=== PATIENT | female | born 1995 | race Two or more races ===

== ENCOUNTER 2017-05-21 00:25 | Emergency (ER) | payer OTHER ==
[2017-05-21 00:28] VITALS: TEMP 98.6
--- NOTE | 2017-05-21 00:28 | EDPHY ---
H & P HPI/ROS: HPI CHIEF COMPLAINT: Back pain HISTORY OF PRESENT ILLNESS: This patient is a 22-year-old female otherwise healthy no significant medical history does not take any daily medications she presents emergency room with back pain. Patient reports to me that she was lifting a couch to clean this evening around 6:00 p.m.. She was lifting a couch with 1 arm and then pushing the Vacuum under the couch with the other arm. She immediately felt pain in her back lumbar region. Paravertebral. Her main complaint is paravertebral pain bilaterally in her lumbar spine. She denies radiation of pain. Denies pain that radiates down her legs. Denies saddle anesthesia. Denies bowel or bladder incontinence or retention. Denies direct trauma to her back. Pain is 7/10 worse with movement and standing. Past Medical History: No significant medical history Past Surgical History: No significant surgical history Social History: Denies daily use drugs alcohol tobacco products. Family History: Noncontributory ROS REVIEW OF SYSTEMS: A comprehensive 10 point review of systems is otherwise negative aside from elements mentioned in the history of present illness. Exam Constitutional appears well nontoxic triage nursing summary reviewed, vital signs reviewed, awake/alert. Eyes normal conjunctivae and sclera, EOMI, PERRLA. HENT normal inspection, atraumatic, moist mucus membranes, no epistaxis, neck supple/ no meningismus, no raccoon eyes. Respiratory clear to auscultation bilaterally, normal breath sounds, no respiratory distress, no wheezing. Cardiovascular rate normal, regular rhythm, no murmur, no edema, distal pulses normal. Gastrointestinal soft, non-tender, no rebound, no guarding, normal bowel sounds, no distension, no pulsatile mass. Genitourinary no CVA tenderness. Musculoskeletal I do not appreciate a focal tenderness in the midline lumbar spine, mild tenderness palpation paravertebral down the lumbar spine, full range of motion, no calf swelling, no tenderness of extremities, no meningismus , good pulses, neurovascularly intact. Skin pink, warm, & dry, no rash, skin atraumatic. Neurologic awake, alert and oriented x 3, AAOx3, moves all 4 extremities equally, motor intact, sensory intact, CN II-XII intact, normal cerebellar, normal vision, normal speech. Psychiatric normal mood/affect. Heme/Lymph/Immune no lymphadenopathy. Differential Diagnosis: Includes but is not limited to in a particular order muscle spasm, muscle strain, annular tear, nerve root compression, disc herniation, compression fracture, sciatica, central cord syndrome, which I doubt given no signs of saddle anesthesia, and no signs of cauda equina. Medical Decision Making: Plan for this patient x-ray lumbar spine, medication IV IV fentanyl for acute pain control, IV Valium for spasm, IV Toradol and IV Decadron. Check basic blood re-evaluate. Re-evaluation: 0222: Re-evaluation at this time this patient is resting comfortably feels much better after IV pain control. She received IV fentanyl here IV Toradol IV Decadron and is feeling much better. She is able to ambulate without any difficulty. Normal leg strength. No signs of cauda equina or saddle anesthesia. Return precautions given. She understands return emergency room she develops leg weakness worsening back pain fever vomiting or questions or concerns. ED x-ray lumbar spine; negative for acute malalignment or fracture. Interpreted by myself. Source: Patient - Personal History Tetanus Vaccine Date: 3YEARS AGO - Medical/Surgical History Hx Asthma: No Hx Chronic Respiratory Disease: No Hx Diabetes: No Hx Cardiac Disease: No Hx Renal Disease: No Hx Cirrhosis: No Hx Alcoholism: No Hx HIV/AIDS: No Hx Splenectomy or Spleen Trauma: No Other PMH: none - Social History Smoking Status: Never smoked Constitutional: Initial Vital Signs Temperature (C) 37.0 C 05/21/17 00:26 Heart Rate 80 05/21/17 00:26 Respiratory Rate 16 05/21/17 00:26 Blood Pressure 109/71 05/21/17 00:26 O2 Sat (%) 97 05/21/17 00:26 O2 Delivery Mode Room Air O2 (L/minute) 3 Allergies/Adverse Reactions: No Known Allergies Allergy (Verified 05/22/16 11:54) Home Medications: Medication Instructions Recorded Hydrocodone/APAP 5/325 [[place] 1 - 2 tab PO Q4H PRN #10 tab 05/21/17 5/325] Ibuprofen [Motrin (*)] 800 mg PO Q6-8PRN #10 tab 05/21/17 Medical Decision Making - Data Points Laboratory Results: Laboratory Results 05/21/17 00:45 05/21/17 00:45 05/21/17 05/21/17 00:45 00:45 WBC 12.04 10^3/uL H 10^3/uL (3.80-9.50) RBC 4.52 10^6/uL 10^6/uL (4.18-5.33) Hgb 14.8 g/dL g/dL (12.6-16.3) Hct 40.8 % % (38.0-47.0) MCV 90.3 fL fL (81.5-99.8) MCH 32.7 pg pg (27.9-34.1) MCHC 36.3 g/dL g/dL (32.4-36.7) RDW 12.5 % % (11.5-15.2) Plt Count 211 10^3/uL 10^3/uL (150-400) MPV 10.6 fL fL (8.7-11.7) Neut % (Auto) 64.5 % % (39.3-74.2) Lymph % (Auto) 26.8 % % (15.0-45.0) [place] % (Auto) 7.0 % % (4.5-13.0) Eos % (Auto) 1.0 % % (0.6-7.6) Baso % (Auto) 0.3 % % (0.3-1.7) Nucleat RBC Rel Count 0.0 % % (0.0-0.2) Absolute Neuts (auto) 7.76 10^3/uL H 10^3/uL (1.70-6.50) Absolute Lymphs (auto) 3.23 10^3/uL H 10^3/uL (1.00-3.00) Absolute Monos (auto) 0.84 10^3/uL H 10^3/uL (0.30-0.80) Absolute Eos (auto) 0.12 10^3/uL 10^3/uL (0.03-0.40) Absolute Basos (auto) 0.04 10^3/uL 10^3/uL (0.02-0.10) Absolute Nucleated RBC 0.00 10^3/uL 10^3/uL (0-0.01) Immature Gran % 0.4 % % (0.0-1.1) Immature Gran # 0.05 10^3/uL 10^3/uL (0.00-0.10) Sodium 143 mEq/L mEq/L (134-144) Potassium 3.7 mEq/L mEq/L (3.5-5.2) Chloride 109 mEq/L mEq/L (97-110) Carbon Dioxide 21 mEq/l L mEq/l (22-31) Anion Gap 13 mEq/L mEq/L (8-16) BUN 14 mg/dL mg/dL (7-23) Creatinine 0.8 mg/dL mg/dL (0.6-1.0) Estimated GFR > 60 Glucose 100 mg/dL mg/dL (70-100) Calcium 9.5 mg/dL mg/dL (8.5-10.4) Medications Given: Discontinued Medications Dexamethasone (Decadron Injection) 10 mg IVP EDNOW ONE Stop: 05/21/17 00:43 Last Admin: 05/21/17 01:09 Dose: 10 mg Diazepam (Valium Injection) 2.5 mg IVP EDNOW ONE Stop: 05/21/17 00:43 Last Admin: 05/21/17 01:33 Dose: Not Given Fentanyl (Sublimaze) 50 mcg IVP EDNOW ONE Stop: 05/21/17 00:42 Last Admin: 05/21/17 01:08 Dose: 50 mcg Sodium Chloride (Ns) 1,000 mls @ 0 mls/hr IV EDNOW ONE; Wide Open PRN Reason: Protocol Stop: 05/21/17 00:42 Last Admin: 05/21/17 01:07 Dose: 1,000 mls Ketorolac Tromethamine (Toradol) 15 mg IVP EDNOW ONE Stop: 05/21/17 00:43 Last Admin: 05/21/17 01:07 Dose: 15 mg Departure - Departure Disposition: Home, Routine, Self-Care Clinical Impression: Back pain Qualifiers: Back pain location: low back pain Chronicity: acute Back pain laterality: unspecified Sciatica presence: without sciatica Qualified Code(s): M54.5 - Low back pain Condition: Good Instructions: Low Back Strain (ED), Acute Low Back Pain (ED) Additional Instructions: 1. Ice her back over the next 24-48 hours. 2. Take Motrin or ibuprofen for mild pain. 3. Take [place] for severe pain. 4. Return to the emergency room if you have worsening pain or further questions or concerns. Referrals: Julieth Esposito MD [Primary Care Provider] - As per Instructions Prescriptions: Hydrocodone/APAP 5/325 [[place] 5/325] 1 - 2 tab PO Q4H PRN #10 tab PRN Reason: Pain, Moderate Ibuprofen [Motrin (*)] 800 mg PO Q6-8PRN #10 tab
[2017-05-21] MEDS ORDERED: fentaNYL 100 MCG/2 ML INJ IVP ONE ×2 (00:41)
[2017-05-21] MEDS ORDERED: NS 1,000 ML IV ONE ×2 (00:41)
[2017-05-21] MEDS ORDERED: KETOROLAC 15 MG/1 ML SDV IVP ONE ×2 (00:42)
[2017-05-21] MEDS ORDERED: DEXAMETHASONE 10 MG/ML VIAL IVP ONE ×2 (00:42)
[2017-05-21 00:57] LABS: PLATELET COUNT 211 10^3/uL (150-400)
[2017-05-21] MEDS: DIAZEPAM 10 MG/2 ML SYR IVP ONE ×4 (01:09→01:33)
[2017-05-21 02:38] VITALS: BP 102/70; PULSE 68; RESP 18; O2SAT 98
== END 2017-05-21 02:37 | disposition home or self-care (01) ==
PROC: 3E0337Z Introduction of Electrolytic and Water Balance Substance into Peripheral Vein, Percutaneous Approach (ICD-10-PCS; principal; 2017-05-21)
DX: M54.5 Low back pain (principal); E86.9 Volume depletion, unspecified
CPT/HCPCS: 96374; J1100; J1885; J3010